=== PATIENT | male | born 1980 | race Caucasian/White ===

== ENCOUNTER 2020-09-10 13:19 | Emergency (ER) | payer MEDICAID ==
[~2020-09-10] VITALS: Ht 175.3 cm; Wt 68.9 kg
[2020-09-10 13:22] VITALS: BP 129/61
--- NOTE | 2020-09-10 13:33 | NUR ---
Simone jones in [facility] - 09/10/20 at 1344 by MED1 C/O URINARY FREQUENCY & LLQ ABDOMINAL PAIN X 4 DAYS. PMH: FIONA
--- NOTE | 2020-09-10 13:41 | NUR ---
C/O URINARY FREQUENCY , DYSURIA & LLQ ABDOMINAL PAIN X 4 DAYS. PMH: DENIES
--- NOTE | 2020-09-10 13:44 | NUR ---
Patient being evaluated by RAF JAQUEZ at [facility].
[2020-09-10 14:33] LABS: APPEARANCE,URINE CLEAR (CLEAR); BILIRUBIN,URINE NEGATIVE (NEGATIVE); BLOOD, URINE NEGATIVE (NEGATIVE); COLOR,URINE YELLOW (YELLOW); LEUKOCYTE ESTERASE ,URINE NEGATIVE (NEGATIVE); NITRITE, URINE NEGATIVE (NEGATIVE); PH,URINE 6.5 (5.0-9.0); UGLUCOSE NEGATIVE (NEGATIVE)
[2020-09-10 15:15] VITALS: BP 129/61
--- NOTE | 2020-09-10 15:16 | NUR ---
Patient discharged with v/s stable. Written and verbal after care instructions given and explained. Patient alert, oriented and verbalized understanding of instructions. Ambulatory with steady gait. All questions addressed prior to discharge. ID band removed. Patient advised to follow up with PMD. Rx of Docusate Sodium 100mg Mineral oil 15ml, and Miralax powder 17 grams given. Patient educated on indication of medication including possible reaction and side effects. Opportunity to ask questions provided and answered.
== END 2020-09-10 15:10 | disposition home or self-care (01) ==
LOC: MED 13:19
DX: K59.00 Constipation, unspecified (principal); R39.15 Urgency of urination; N30.90 Cystitis, unspecified without hematuria; Z88.0 Allergy status to penicillin
CPT/HCPCS: 36415; 81003; 87491; 99284

== ENCOUNTER 2024-07-03 10:51 | Emergency (ER) | payer BC, MEDICAID ==
[~2024-07-03] VITALS: Ht 175.3 cm; Wt 73.5 kg
[2024-07-03 10:54] VITALS: BP 113/72; PULSE 110; RESP 18; TEMP 98
[2024-07-03] MEDS ORDERED: IBUP-2213 PO (12:53)
[2024-07-03 13:40] VITALS: BP 113/72; PULSE 110; RESP 18; TEMP 98
== END 2024-07-03 13:42 | disposition home or self-care (01) ==
LOC: MED 10:51
DX: S90.32XA Contusion of left foot, initial encounter (principal); Z79.899 Other long term (current) drug therapy; Z88.0 Allergy status to penicillin; W22.8XXA Striking against or struck by other objects, initial encounter; Y92.89 Other specified places as the place of occurrence of the external cause; Y93.89 Activity, other specified; Y99.8 Other external cause status
CPT/HCPCS: 73630; 99283